=== PATIENT | male | born 1985 | race Two or more races ===

== ENCOUNTER 2017-02-06 03:18 | Emergency (ER) | payer OTHER, MEDICAID ==
[2017-02-06 04:16] VITALS: RESP 18; TEMP 99.6; O2SAT 100
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
[2017-02-06 06:37] VITALS: BP 148/63; PULSE 86
== END 2017-02-06 06:36 | disposition home or self-care (01) ==
LOC: H.ER 03:18
DX: R51 Headache (principal); V43.52XA Car driver injured in collision with other type car in traffic accident, initial encounter; Y92.410 Unspecified street and highway as the place of occurrence of the external cause